=== PATIENT | female | born 1965 | race American Indian/Alaskan Native ===

== ENCOUNTER 2019-07-22 14:19 | Outpatient (CLI) | payer BC ==
--- NOTE | 2019-07-30 09:34 | MMO ---
Bilateral MAMMO Bilat Screen [facility]. CLINICAL HISTORY: Patient is 54 years old and is seen for screening. The patient has no family history of breast cancer. The patient has no personal history of cancer. VIEWS: The views performed were: bilateral craniocaudal with tomosynthesis and bilateral mediolateral oblique with tomosynthesis. FILMS COMPARED: The present examination has been compared to prior imaging studies performed at [facility] on 01/31/2015, and at [facility] on 04/04/2016, 05/13/2017 and 07/17/2018. This study has been interpreted with the assistance of computer-aided detection. MAMMOGRAM FINDINGS: There are scattered fibroglandular densities. There are stable benign appearing calcifications seen in both breasts. There are no suspicious masses, suspicious calcifications, or new areas of architectural distortion. IMPRESSION: THERE IS NO MAMMOGRAPHIC EVIDENCE OF MALIGNANCY. A ROUTINE FOLLOW-UP MAMMOGRAM IN 1 YEAR IS RECOMMENDED. THE RESULTS OF THIS EXAM WERE SENT TO THE PATIENT. ACR BI-RADS Category 2 - Benign finding MAMMOGRAPHY NOTE: 1. A negative mammogram report should not delay a biopsy if a dominant of clinically suspicious mass is present. 2. Approximately 10% to 15% of breast cancers are not detected by mammography. 3. Adenosis and dense breasts may obscure an underlying neoplasm. Reported by: GUILLERMO GRANDE MD Electonically Signed: [id number]
== END 2019-07-22 14:20 | disposition home or self-care (01) ==
LOC: BICMAMMO 14:19
PROVIDERS: ATTEND Family Medicine
DX: Z12.31 Encounter for screening mammogram for malignant neoplasm of breast (principal)
CPT/HCPCS: 77063; 77067

== ENCOUNTER 2019-08-30 10:09 | Outpatient (CLI) | payer BC ==
--- NOTE | 2019-08-30 10:35 | RAD ---
EXAM: 2 views of the right knee HISTORY: Right knee pain COMPARISON: None FINDINGS: No knee effusion is seen. There is no evidence of acute fracture or dislocation. Moderate t ricompartmental osteophytes are seen consistent with osteoarthritis. This is greatest in the medial femorotibial compartment. IMPRESSION: Moderate right knee osteoarthritis
--- NOTE | 2019-08-30 11:22 | RAD ---
LUMBAR SPINE 2 VIEWS: Date: 08/30/2019 INDICATION: Low back pain. FINDINGS: There is mild levoscoliosis centered at L2-3. There is advanced facet osteoarthrosis at L4-5 and L5-S 1. Spinal alignment is preserved on the lateral projection. Mild multilevel disc degenerative disease at L4-5 and L5-S1 is present. SI joints are normal appearing. IMPRESSION: 1. Mild spondylosis of lumbar spine. 2. Mild levoscoliosis. POS: CET
--- NOTE | 2019-08-30 11:23 | RAD ---
2 VIEWS THORACIC SPINE: Date: 08/30/2019 INDICATION: Back pain. COMPARISON: None. FINDINGS: There is mild thoracolumbar scoliosis. There is mild multilevel disc degenerative disease. Spinal ali gnment on the lateral projection appears within normal limits. No congenital vertebral anomaly is kristal dent. No acute fracture is noted. IMPRESSION: 1. Mild thoracolumbar scoliosis. 2. Mild thoracic spondylosis. POS: CET
== END 2019-08-30 10:10 | disposition home or self-care (01) ==
LOC: BICRAD 10:09
PROVIDERS: ATTEND Family Medicine
DX: M54.5 Low back pain (principal); M25.561 Pain in right knee; M41.9 Scoliosis, unspecified; M47.814 Spondylosis without myelopathy or radiculopathy, thoracic region; M47.816 Spondylosis without myelopathy or radiculopathy, lumbar region; M17.11 Unilateral primary osteoarthritis, right knee
CPT/HCPCS: 72072; 72100

== ENCOUNTER 2020-11-13 11:24 | Outpatient (CLI) | payer BC | END 2020-11-13 11:25 | disposition home or self-care (01) | LOC: BICMAMMO 11:24 | PROVIDERS: ATTEND Family Medicine | DX: Z12.31 Encounter for screening mammogram for malignant neoplasm of breast (principal) | CPT/HCPCS: 77063; 77067 ==

== ENCOUNTER 2021-12-18 09:07 | Outpatient (CLI) | payer BC | END 2021-12-18 09:08 | disposition home or self-care (01) | LOC: BICMAMMO 09:07 | PROVIDERS: ATTEND Nurse Practitioner Family | DX: Z12.31 Encounter for screening mammogram for malignant neoplasm of breast (principal) | CPT/HCPCS: 77063; 77067 ==